=== PATIENT | male | born 1980 | race Caucasian/White ===

== ENCOUNTER 2023-05-23 09:59 | Outpatient (CLI) | payer MEDICAID, SELFPAY ==
--- OUTSIDE RECORDS SUMMARY | 2023-05-23 10:13 | XMS_ITS | Data Portability ---
Author Name Unknown Address [address] [place] [address] Phone [phone] Organization [facility] Address [address] [place] [address] Care Team Providers Care Property Economist Name Role Phone [facility] OTHER Assessment Encounter Date Assessment Date Assessment LastModified by Organization Details LastModified Time 07/27/2020 07/27/2020 The above findings do not support the presence of documented illness that would preclude the patient from participation in inpatient chemical dependence treatment. Based on patient history and the above findings, there's no evidence of communicable disease at this time. Okay to utilize Mellette Routine Standing Orders as Needed. Not available 07/27/2020 10:11:35 09/24/2021 09/24/2021 The above findings do not support the presence of documented illness that would preclude the patient from participation in inpatient chemical dependence treatment. Based on patient history and the above findings, there's no evidence of communicable disease at this time. Okay to utilize Mellette Routine Standing Orders as Needed. Not available 09/24/2021 09:48:40 Plan of Treatment Reminders Order Date Submit Date Provider Last Modified By Organization Details Last Modified Time Details Appointments None recorded. Lab RPR (rapid plasma reagin), serum 2021 022 [email or web address] Not available 2 08:24:15 HIV (1+2) Ab screen, serum 2021 022 [email or web address] Not available 2 08:24:15 hepatitis C virus Ab, serum 2021 022 [email or web address] Not available 2 08:24:16 CT + NG RNA, PCR, unspecified specimen 2021 [email or web address] Not available 08:24:16 hepatitis B profile, serum 2021 [email or web address] Not available 08:24:16 Referral None recorded. Procedures None recorded. Surgeries None recorded. Imaging None recorded. Medication Orders cholecalcif priscila (vitamin D3) 50 mcg (2,000 unit) tablet 2021 [facility], [address] [place] [address], [address], [place], [address], 23:33:15 multivitami n tablet 2021 [facility], [address] [place] [address], [address], [place], [address], 23:33:15 naltrexone 50 mg tablet 2021 [email or web address] Not available 08:33:10 nystatin 100,000 unit/gram topical cream [email or web address] [place] [address], [address] [place] [address], [address], [place], [address], 08:52:49 Patient TargetsNo targets recorded. Patient Instructions Encounter Date Encounter Id Patient Instructions Last Modified By Organization Details Last Modified Time 09/24/2021 [id number] Patient is clear ed for admission into chemical dependence treatment facility. The patient is free of communicable diseases per patient self. Counseled on smoking cessation and discussed pharmacologic and non-pharmacologic options for quitting. Call 2-722-GPYX-NOW for free smoking cessation support. Ok to admit with current standing orders per facility. In house psychiatrist referrer Recommend frequent hand washing and social distancing, reporting any signs/ sx of COVID-19 to nursing staff immediately. Continue current care plan at treatment facility. Standing orders signed per facility request. Infection control is important while in a congregant living facility, especially amid the COVID-19 pandemic. The following measures can help to mitigate the spread of infections: 1. Frequent hand washing with soap and water or hand rn endoscopy. 2. Avoid touching your face. 3. Maintain social distance of at least 6 feet apart from other people. 4. Wear a mask or cloth face covering if available. 5. Report any fever, malaise, cough, or shortness of breath to nursing staff immediately. Quarantine from others if these symptoms develop. [email or web address] Not available 09/24/2021 10:01:12 Patient advised to continue maintaining contact with helpful treatment resources and/or support groups even if he is initially able to achieve abstinence. Patient to contact a provider or clinic if concerned about any increased risk of relapse due to increased stress, anxiety, family issues, work-related problems, or increased craving. 5 minutes educated on the importance of quitting smoking. Discussed pharmacologic and nonpharmacologic methods of quitting. Follow-up actions: Advised patient to call [phone]-VLCQ-NOW for free smoking cessation support and resources. Due to the covid-19 situation, this visit is being conducted via telemedicine/video conference per the direction of state and federal recommendations. I have reviewed this with my client have consented to services being conducted in this format. Not available 09/24/2021 10:01:24 07/27/2020 [id number] Patient is clear ed for admission into chemical dependence treatment facility. The patient is free of communicable diseases per patient self. Counseled on smoking cessation and discussed pharmacologic and non-pharmacologic options for quitting. Call 1-308-PQXS-NOW for free smoking cessation support. Ok to admit with current standing orders per facility. In house psychiatrist referrer Recommend frequent hand washing and social distancing, reporting any signs/ sx of COVID-19 to nursing staff immediately. ATTN Nursing: please continue to check/ record temperature 2x daily and screen for cough, fever, sob. Continue current care plan at treatment facility. Standing orders signed per facility request. Infection control is important while in a congregant living facility, especially amid the COVID-19 pandemic. The following measures can help to mitigate the spread of infections: 1. Frequent hand washing with soap and water or hand rn endoscopy. 2. Avoid touching your face. 3. Maintain social distance of at least 6 feet apart from other people. 4. Wear a mask or cloth face covering if available. 5. Report any fever, malaise, cough, or shortness of breath to nursing staff immediately. Quarantine from others if these symptoms develop. [email or web address] Not available 07/27/2020 10:15:54 Patient advised to continue maintaining contact with helpful treatment resources and/or support groups even if he is initially able to achieve abstinence. Patient to contact a provider or clinic if concerned about any increased risk of relapse due to increased stress, anxiety, family issues, work-related problems, or increased craving. Educated on the importance of quitting smoking. Discussed pharmacologic and nonpharmacologic methods of quitting. Follow-up actions: Advised patient to call 8-047-CKMK-NOW for free smoking cessation support and resources. Due to the covid-19 situation, this visit is being conducted via telemedicine/video conference per the direction of state and federal recommendations. I have reviewed this with my client have consented to services being conducted in this format. [email or web address] Not available 07/27/2020 15:58:05 Reason for Referral None Reported. Problems Name Status Onset Date Resolution Date Notes Provider Name and Address Organization Details Recorded Time Attention deficit hyperactivity disorder Active Odalys Sesar [employer] [employer] 1 10:12:43 Posttraumatic stress disorder Active Odalys Sesar [employer], [employer] 1 10:12:51 Cannabis dependence Active Last use: 07/2021 Amount: 3.5 grams QD Started:1 4 yrs old [employer], [employer] 2 09:51:14 Methamphetamine dependence Active Last use: 2 Amount:1 gram QD Route: Smoke, IV---Hasmukh es sharing needles Started: 16 yrs old [employer], [employer] 2 09:50:55 Mixed anxiety and depressive disorder Active [employer] [employer] 2 09:49:49 Tobacco dependence syndrome Active Former smoker [employer] [employer] 2 09:50:09 Problem Notes None recorded. Medical Equipment None Reported. Allergies Allergen ID Allergen Name Allergen Category Reaction Reaction Severity Criticality Documentation Date Start Date Code Code System Note Provider Name and Address Organization Details Recorded Time 1473 codeine medicatio n Not available Not available Not available 07/27/2020 2670 RxNorm ADAM Figueroa [employer] 1 10:12:06 Medications Name Sig Start Date Stop Date Status Note LastModified by Organization Details LastModified Time multivitami n tablet Take 1 tablet every day by oral route. 2021 active Not Available Not Available Not Avai lable naltrexone 50 mg tablet Take 1 tablet every day by oral route. 2021 active Not Available Not Available Not Avai lable nystatin 100,000 unit/gram topical cream APPLY TO THE AFFECTED AREA(S) BY TOPICAL ROUTE 2 TIMES PER DAY 09/24 completed Not Available Not Available Not Available Tab-A-Hermes take 1 tablet daily 09/24 completed Not Available Not Available Not Available cholecalcif priscila (vitamin D3) 50 mcg (2,000 unit) tablet Take 1 tablet every day by oral route. 2021 active Not Available Not Available Not Avai lable Vitals Date Recorded Body height Body mass index (BMI) Body weight Heart rate Respiratory rate Body temperature Oxygen saturation Oxygen saturation in Arterial blood by Pulse oximetry Systolic blood pressure Diastolic blood pressure Provider Name and Address Organization Details Last Updated DateTime 2 177.8 cm 25.8 kg/m2 66700.6 3 g 83 /min 16 /min 97.3 [degF] 96 % 96 % 100 mm[Hg] 78 mm[Hg] marcy luciano [employer] 2 09:52:01 Date Recorded Body height Body mass index (BMI) Body weight Heart rate Respiratory rate Body temperature Oxygen saturation Oxygen saturation in Arterial blood by Pulse oximetry Systolic blood pressure Diastolic blood pressure Provider Name and Address Organization Details Last Updated DateTime 1 177.8 cm 25.8 kg/m2 70557.6 3 g 84 /min 17 /min 96.5 [degF] 98 % 98 % 128 mm[Hg] 91 mm[Hg] ADAM Figueroa [employer] 1 10:18:15 Social History Question Answer Notes LastModified by Organizat ion Details LastModified Time Tobacco Smoking Status Former Smoker marcy shah ADAM luciano - [employer] 09/24/2021 09:56:35 What Is Your Level Of Alcohol Consumption? Occasional Information not available 07/27/2020 How Many Years Have You Consumed Alcohol? 28 Information not available 09/24/2021 Are You Blind Or Do You Have Difficulty Seeing? No Information not available 09/24/2021 What Is Your Level Of Caffeine Consumption? Heavy Information not available 09/24/2021 How Much Tobacco Do You Chew? None Information not available 07/27/2020 Are You Currently Employed? No Information not available 09/24/2021 Are You Deaf Or Do You Have Serious Difficulty Hearing? No Information not available 09/24/2021 What Type Of Diet Are You Following? REGULAR Information not available 07/27/2020 Which Illicit Or Recreational Drugs Have You Used? See Problem List Information not available 09/24/2021 Do You Or Have You Ever Used E-cigarettes Or Vape? Never Used Electronic Cigarettes Information not available 07/27/2020 Education 12 Information no t available 07/27/2020 What Is The Highest Grade Or Level Of School You Have Completed Or The Highest Degree You Have Received? [id number] Information not available 09/24/2021 Hard Of Hearing Or Deaf In One Or Both Ears? No Information not available 07/27/2020 Legally Blind In One Or Both Eyes? No Information not available 07/27/2020 Live Alone Or With Others? With Others Information not available 07/27/2020 What Was The Date Of Your Most Recent Tobacco Screening? 09/24/2021 Information not available 09/24/2021 How Many Children Do You Have? 3 Information not available 09/24/2021 Are You Sexually Active? Yes STD TESTED 02/2020 + [employer]= TREATED Information not available 07/27/2020 At What Age Did You Start Smoking Tobacco? 13 Information not available 07/27/2020 Are You Passively Exposed To Smoke? No Information not available 07/27/2020 Do You Or Have You Ever Used Smokeless Tobacco? Never Used Smokeless Tobacco Information not available 07/27/2020 How Much Tobacco Do You Smoke? 1 PPD Information not available 07/27/2020 General Stress Level High Information not available 07/27/2020 Do You Feel Stressed (tense, Restless, Nervous, Or Anxious, Or Unable To Sleep At Night)? [id number] Information not available 09/24/2021 Do You Use Any Illicit Or Recreational Drugs? Yes Information not available 09/24/2021 How Many Years Have You Smoked Tobacco? 35 Information not available 07/27/2020 Do You Or Have You Ever Used Any Other Forms Of Tobacco Or Nicotine? No Information not available 09/24/2021 Sex: Male Functional Status Question Answer Note LastModified by Organizat ion Details LastModified Time Do you have difficulty walking or climbing stairs? No Information not available 09/24/2021 Are you able to walk? YESWOREST Information not available 09/24/2021 Do you have difficulty doing errands alone? No Information not available 09/24/2021 Are you able to care for yourself? Yes Information not available 07/27/2020 Do you have difficulty dressing or bathing? No Information not available 09/24/2021 What is your exercise level? Occasional Information not available 09/24/2021 Mental Status Question Answer Note LastModified by Organization D etails LastModified Time Do you have difficulty concentrating, remembering or making decisions? Yes Information no t available 09/24/2021 Family History Nothing Reported. Medical History No medical history recorded. Past Encounters Encounter ID Performer Location Encounter Start Date Encounter Closed Date Diagnosis/Indication [id number] Jayden Lowery NP, S [facility] [address] [place] [id number] 07/27/2020 10:08:41 09/13/2020 20:13:05 Methamphetamine dependence Cannabis dependence Mixed anxiety and depressive disorder Tobacco dependence syndrome Candidiasis of skin Attention deficit hyperactivity disorder Posttraumatic stress disorder [id number] Jayden Lowery NP, S [facility] [address] [place] [id number] 09/24/2021 09:46:03 09/28/2021 04:32:10 Methamphetamine dependence Cannabis dependence Mixed anxiety and depressive disorder Tobacco dependence syndrome Exposure to sexually transmissible disorder Attention deficit hyperactivity disorder Posttraumatic stress disorder Renewal of prescription Health Concerns Section Related Observation LastModified by Organization Detai ls LastModified Time None Recorded Concern Status LastModified by Organization Details LastModified Time None Recorded Advance Directives Directive None Recorded Payers Encounter Date Sequence Insurance Name Policy Number Policy Galvin Covered Member ID Galvin Member ID Guarantor Name 09/24/2021 1 [employer] - DOS PRIOR TO 2021 (MEDICAID REPLACEMENT - HMO) MEMMIGUEL Christy [id number] Nikhil Christy 07/27/2020 1 *SELF PAY* Br connie Christy Notes Date Note Type Note Provider Name and Address Organization Details Recorded Time 07/27/2020 text/html HPI Notes: A 39 years old patient residing at [facility] with a history of drug abuse, anxiety, ADD, PTSD and depression. Patient admitted for methamphetamine and cannabis abuse, he denies use of other drugs.Patient denies. Patient presents for an admission H&P. required for admission to a chemical dependence treatment program. He has used drug for 25 years. last use was 06/16/20, he denies cravings and admit withdrawal symptoms. Patient smoke 20 cigarette daily and he has use tobacco for 26 years. He denies suicidal ideation. Patient reports he is sexually active. Tobacco use: Patient declines smoking cessation. The patient is established with a primary care provider. The patient is not established with a mental health provider. The patient has not been hospitalized recently. Start time of video conference: 904 End time of video conference: 924 Location of patient: [facility] Location of medical and scientific illustrator: Home Location of provider: Home Patient verbally consented to receiving visit videoconference. A Carly[employer] videoconference visit is being conducted rather than a face to face visit due to CDC recommendations for social distancing amid the COVID-19 pandemic. Do you have a fever?: no Do you have a cough?: no Do you have shortness of breath?: no Verbally consent given for services, release of information, and record sharing. Written consent given by patient for services, release of information, and record sharing. Notice of Privacy Practices presented at this time. Written consent to be faxed by facility staff to [employer]. Jayden Lowery NP, S [address], [place], [address], [facility] [employer] 07/27/2020 15:59:15 09/24/2021 text/html HPI Notes: This is an Established patient who Presents for H+P as required for admission to a chemical dependence treatment program. 40 years old patient residing at [facility] with a history of drug abuse, anxiety, ADD, PTSD and depression. Patient admitted for methamphetamine and cannabis abuse, he denies use of other drugs.Patient denies. Patient presents for an admission H&P. required for admission to a chemical dependence treatment program. He has used drug for 26 years. last use was 09/20/21, he denies cravings and withdrawal symptoms. He denies suicidal thoughts. Patient reports he is sexually active. Covid vaccines: No covid vaccines The patient is not established with a primary care provider. The patient is not established with a mental health provider. The patient has not been hospitalized recently. Start time of video conference: 899 End time of video conference: 924 Location of patient: [facility] Location of medical and scientific illustrator: Office Location of provider: Office Patient verbally consented to receiving visit videoconference. A C[facility]so videoconference visit is being conducted rather than a face to face visit due to CDC recommendations for social distancing amid the COVID-19 pandemic. Do you have a fever?: no Do you have a cough?: no Do you have shortness of breath?: no Verbally consent given for services, release of information, and record sharing. Written consent given by patient for services, release of information, and record sharing. Notice of Privacy Practices presented at this time. Written consent to be faxed by facility staff to [employer]. Jayden Lowery NP, S [address], [place], [address], [facility] [employer] 09/24/2021 23:33:34
== END 2023-05-23 10:00 | disposition home or self-care (01) ==
PROVIDERS: PCP Family Medicine; Visit Provider Family Medicine
DX: R10.13 Epigastric pain (principal); Z13.220 Encounter for screening for lipoid disorders; Z13.29 Encounter for screening for other suspected endocrine disorder; Z13.228 Encounter for screening for other metabolic disorders; Z12.5 Encounter for screening for malignant neoplasm of prostate
CPT/HCPCS: 80053; 80061; 84443; G0103

== ENCOUNTER 2023-06-22 06:13 | Outpatient (CLI) | payer MEDICAID, SELFPAY ==
--- NOTE | 2023-06-22 07:41 | W.ANESCHARGE ---
Anesthesia Charges Start Date/Time Anesthesia Start Date: 06/22/23 Anesthesia Start Time: 07:11 Stop Date/Time Anesthesia Stop Date: 06/22/23 Anesthesia Stop Time: 08:10
--- NOTE | 2023-06-22 08:16 | W.ANESCHARGE ---
Anesthesia Charges Start Date/Time Anesthesia Start Date: 06/22/23 Anesthesia Start Time: 07:11 Stop Date/Time Anesthesia Stop Date: 06/22/23 Anesthesia Stop Time: 08:10
== END 2023-06-22 06:14 | disposition home or self-care (01) ==
LOC: OP CLINIC 06:13
PROVIDERS: Visit Provider Surgery
DX: Z12.11 Encounter for screening for malignant neoplasm of colon (principal); K63.5 Polyp of colon; Z80.0 Family history of malignant neoplasm of digestive organs
CPT/HCPCS: 00811; 45381; 45385; 88305; J2704

== ENCOUNTER 2023-06-23 12:06 | Outpatient (CLI) | payer MEDICAID, SELFPAY | END 2023-06-23 12:07 | disposition home or self-care (01) | LOC: LKVREF 12:07 | PROVIDERS: PCP Family Medicine; Visit Provider Family Medicine | DX: Z01.818 Encounter for other preprocedural examination (principal) | CPT/HCPCS: 80048 ==

== ENCOUNTER 2023-06-26 06:40 | Day surgery (SDC) | payer MEDICAID, SELFPAY ==
[2023-06-26] VITALS (14 sets, daily range): BP systolic 103–118; BP diastolic 56–83; PULSE 40–67; RESP 16; TEMP 36.4–36.7; O2SAT 94–99; BMI 27.4
[2023-06-26] MEDS: LACTATED RINGERS 1000 ML 1,000 ML 100 ML IV (07:00)
[2023-06-26] MEDS: SODIUM CHLORIDE 0.9 % (FLUSH) 10 ML SYRINGE IVF (07:36)
--- NOTE | 2023-06-26 08:29 | W.PM.H&PU ---
History & Physical Update History & Physical Update H&P Reviewed and patient assessed: No changes noted
--- NOTE | 2023-06-26 08:30 | PM.GSPRC ---
Operative Note Date of procedure: 06/26/23 Pre-op diagnosis: 1. Symptomatic umbilical hernia. Post-op diagnosis: 1. Incarcerated umbilical hernia containing preperitoneal fat. Type of Procedure: 1. Open umbilical hernia repair without mesh. Indications: 42-year-old male was seen in clinic for evaluation of umbilical hernia. Patient initially noticed umbilical bulge 10 years ago. Patient thought the bulge has increased in size slightly since he noticed it. Patient also developed recurrent episodes of vomiting that happened approximately every month. This was not related to eating specific food and usually those episodes started all of a sudden. Patient complained of umbilical discomfort when a T shirt rubbed over it or someone palpated the bulge. On clinical exam at the superior aspect of the umbilicus there was a grape sized bulge that was tender to palpation. I was not able to reduce it because patient was in too much pain with manipulation of the bulge. Given patient's clinical history and his physical exam, an open umbilical hernia repair was recommended. The procedure was discussed in detail. The risks associated procedure including infection, bleeding, hernia recurrence, and injury to intra-abdominal organs were all discussed with the patient, he agreed to proceed. Procedure Description: After discussing the risks and benefits of the procedure, the patient signed informed consent.? The operative site was marked and the patient was brought to the operating room and placed on the operating table in supine position.? Care was taken to pad the patient's pressure points.?? The patient was then intubated by anesthesia.?? The operative site was then prepped and draped in the usual sterile fashion.? A time-out was then performed. Local anesthetic was injected at the surgical site. A curvilinear skin incision was made with a scalpel just above umbilicus. Subcutaneous tissue was dissected with electrocautery down to the hernia sac and anterior fascia. The hernia sac was dissected off of the anterior fascia and subcutaneous fat around the fascial defect was dissected away from the fascial defect with cautery. Preperitoneal fat was incarcerated through the fascial defect. This was dissected away from the fascia but I was not able to reduce the incarcerated fat. This fat was excised with cautery. It was not sent to pathology. Bleeding was noted from preperitoneal fat and that was controlled with cautery and Vicryl tie. The fascial defect was approximately 8 mm. I elected to repair this primarily without mesh. The fascial defect was then closed with interrupted 0-0 Nurolon sutures. Additional local anesthetic was injected into subcutaneous tissues. An umbilicus was tacked down with interrupted 3-0 Vicryl stitches. Subdermal layer was closed with interrupted sutures using 3-0 Vicryl. Skin was closed with 4-0 Monocryl using subcuticular stitch. Steri strips were applied over the incision. I then placed a folded sterile 4x4 gauze over the incision and covered it with tape. All counts were correct at the end of the case. Patient tolerated the procedure well and was transferred to PACU without any complications. Findings: Preperitoneal fat incarcerated through the fascial defect. The fat was excised. The fascial defect was 8 mm and was repaired primarily. Anesthesia: [facility] Surgeon: Audi Christianson MD Condition: stable Disposition: PACU
[2023-06-26] MEDS: CEFAZOLIN 2 GM INJ IVP (08:40)
[2023-06-26] MEDS: BUPIVACAINE 0.25% 30 ML INJECTION (08:43)
[2023-06-26] MEDS: fentaNYL 100 MCG/2 ML inj 50 MCG IVP ×2 (09:31→09:42)
--- NOTE | 2023-06-26 09:31 | W.ANESCHARGE ---
Anesthesia Charges Start Date/Time Anesthesia Start Date: 06/26/23 Anesthesia Start Time: 08:28 Stop Date/Time Anesthesia Stop Date: 06/26/23 Anesthesia Stop Time: 09:26
[2023-06-26] MEDS: HYDROCODONE-ACETAMIN 5-325 MG 1 TAB PO (10:08)
== END 2023-06-26 11:15 | disposition home or self-care (01) ==
PROVIDERS: PCP Family Medicine; Visit Provider Surgery
PROC: (CPT 49592; principal; 2023-06-26 08:15)
DX: K42.0 Umbilical hernia with obstruction, without gangrene (principal)
CPT/HCPCS: 49592; 00830; A9270; J0665; J0690; J1100; J1885; J2250; J2405; J2704; J2710; J3010; J7120

== ENCOUNTER 2023-08-02 07:24 | Emergency (ER) | payer MEDICAID, SELFPAY ==
[2023-08-02 07:30] VITALS: BP 163/103; PULSE 54; RESP 18; TEMP 36.6; O2SAT 97; BMI 26.5
[2023-08-02] MEDS: PANTOPRAZOLE SODIUM 40 MG INJ IVP (07:49)
[2023-08-02] MEDS: ONDANSETRON 2 MG/ML inj 4 MG IVP (07:49)
[2023-08-02] MEDS: 0.9 % SODIUM CHLORIDE 1000 ml 1,000 ML IV (07:50)
--- NOTE | 2023-08-02 08:00 | ED_ITS ---
HPI - Nausea/Vomiting/Diarrhea General Time Seen by Provider: 08:00 Date Seen: 08/02/23 Chief complaint: Nausea/Vomiting Stated complaint: dehydrated Time Seen by Provider: 08/02/23 07:58 Source: patient and RN notes reviewed Mode of arrival: ambulatory Limitations: no limitations History of Present Illness HPI Narrative: This 45yo male is coming to the ED with nausea/vomiting. He states that this has been happening about monthly for years. He does smoke marijuana but states he has done so for most of his life. Also does drink a significant amount of alcohol. No fevers but will feel hot and sweaty with these episodes. Showering helps him. He has Zofran but it isn't helping. Feels that he is dehydrated. Current episode has been since Monday. Related Data Home Medications Medication Instructions Recorded Confirmed guanfacine 1 mg tablet 1 mg PO BID 06/26/23 06/26/23 clonidine HCl .ROUTE 08/02/23 Previous Rx's Medication Instructions Recorded omeprazole 20 mg capsule,delayed 20 mg PO QDAY #90 caps 05/23/23 release ondansetron HCl 4 mg tablet 4 mg PO Q8H PRN nausea and 05/23/23 vomiting #30 tabs hydrocodone 5 mg-acetaminophen 325 1 tab PO Q6H PRN pain #20 tabs 06/26/23 mg tablet olanzapine 5 mg tablet (Zyprexa) 5 mg PO BID PRN #20 tabs 08/02/23 Allergies Allergy/AdvReac Type Severity Reaction Status Date / Time codeine Allergy Mild Verified 06/23/23 11:39 nickel Allergy Verified 06/23/23 11:39 Review of Systems Status of ROS: Reports: 6 or more systems reviewed and unremarkable except as noted in History and below [facility] Surgical History History of hand surgery ?Z98.890 - Other specified postprocedural states (ICD-10) Social History Narrative: Patient smokes marijuana daily. He has been doing that for several years. Denies cigarette smoking but drinks alcohol. 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 Smoking Status: Never smoker Second hand tobacco smoke exposure: No How often do you have a drink containing alcohol: 4 or more times a week Alcohol type: beer How many standard drinks containing alcohol do you have on a typical day: 3 or 4 How often do you have six or more drinks on one occasion: Less than monthly AUDIT-C Alcohol total score: 6 Non-prescribed substance use: marijuana (any form) Non-prescribed substance use details: SMOKING. LAST USED LAST NIGHT Caffeine: Yes Little interest or pleasure in doing things: several days Feeling down, depressed, or hopeless: several days Exam Const: Vital Signs, click to edit/add: Vital Signs - 24 hr 08/02/23 07:30 08/02/23 08:48 Temperature 97.8 F Pulse Rate [Right Pulse Oximeter] 54 L 47 L Respiratory Rate 18 18 Blood Pressure [Ri ght Upper Arm] 163/103 H 161/99 H Pulse Oximetry 97 98 Oxygen Delivery Me thod Room Air Room Air This 42-year-old male is lying in bed in exam room 3 with eyes closed. He is arousable by voice. Face atraumatic, speech is normal. Neck is supple, no adenopathy. Lungs are clear, good air entry, no wheezing or crackles. CV regular rate and rhythm, no murmur, normal S1-S2. Abdomen with normal bowel sounds, abdomen is soft, not distended, no organomegaly, no rebound or guarding, no masses noted. Skin visualized without any rash or jaundice. Documenting provider has reviewed patient's vital signs: yes Course Course ED Course: Patient did come in near change of shift, the overnight physician had ordered some appropriate blood work in initiated IV Protonix, IV Zofran and IV fluids. Patient is still symptomatic with retching intermittently. Have reviewed with him cyclical vomiting in the role of THC and possibly alcohol in this. We did review that for some people the toxic buildup of the THC starts to cause problems even if they have tolerated marijuana for long periods before. We discussed my recommendation for cessation of marijuana use possibly alcohol use as well but if I had to pick 1 to start with it would be the marijuana 1st. We will see with the labs show, see how he responds to Zyprexa. based on my clinical exam and history, do not feel that any abdominal imaging is warranted. Will reconsider this if changes during his stay here or any concerning changes with the labs. Reevaluation(s) Time of Reevaluation #1: 08:46 Reevaluation #1: Nursing staff reports that the patient feels better with the Zyprexa, is just now sleepy. Will see if he can tolerate orals. Time of Reevaluation #2: 09:57 Reevaluation #2: Patient is vomiting again. Have ordered a L of lactated Ringer's and another dose of 5 mg IV Zyprexa. Time of Reevaluation #3: 11:20 Reevaluation #3: Patient is resting, has completed the 2 L. he is not having any more vomiting, has been taking sips of liquids again and is keeping them down at this time. We stressed the importance of small sips every 5-10 minutes while awake. He certainly does not want to overload is stomach. Reviewed normal labs with normal electrolytes. They do try some oral Benadryl at home. He does state his stomach feels ?tight? but not necessarily nauseated anymore. Will give a dose of IV Benadryl 25 mg and plan for discharge with a prescription for oral Zyprexa to add into his regimen at home. Stressed the importance for avoidance of marijuana/THC. Vital Signs Vital signs: Initial Vital Signs Temperature 97.8 F 08/02/23 07:30 Temperature Source Temporal Artery Scan 08/02/23 07:30 Pulse Rate 54 L 08/02/23 07:30 Respiratory Rate 18 08/02/23 07:30 Blood Pressure 163/103 H 08/02/23 07:30 Blood Pressure Mean 123 H 08/02/23 07:30 Blood Pressure Position Supine 08/02/23 07:30 Pulse Oximetry 97 08/02/23 07:30 Oxygen Delivery Method Room Air 08/02/23 07:30 Vital Signs Temperature 97.8 F 08/02/23 07:30 Pulse Rate 54 L 08/02/23 07:30 Respiratory Rate 18 08/02/23 07:30 Blood Pressure 163/103 H 08/02/23 07:30 Pulse Oximetry 97 08/02/23 07:30 Oxygen Delivery Method Room Air 08/02/23 07:30 Temperature 97.8 F 08/02/23 07:30 Pulse Rate 47 L 08/02/23 08:48 Respiratory Rate 18 08/02/23 08:48 Blood Pressure 161/99 H 08/02/23 08:48 Pulse Oximetry 98 08/02/23 08:48 Oxygen Delivery Method Room Air 08/02/23 08:48 Medications Administered Medications: Discontinued Medications Generic Name Dose Route Start Last Admin Trade Name Cristy PRN Reason Stop Dose Admin Sodium Chloride 1,000 mls @ 1,000 mls/hr 08/02/23 07:45 08/02/23 08:37 0.9 % Sodium Chloride 1000 Ml IV 08/02/23 08:44 Infused .Q1H [place] Infusion Lactated Ringer's 1,000 mls @ 1,000 mls/hr 08/02/23 09:57 08/02/23 10:13 Lactated Ringers 1000 Ml IV 08/02/23 10:56 1,000 mls/hr .Q1H ONE Administration Olanzapine 5 mg 08/02/23 08:04 08/02/23 08:15 Olanzapine 5 Mg/Ml Inj IVP 08/02/23 08:05 5 mg ONCE ONE Administration Olanzapine 5 mg 08/02/23 09:57 08/02/23 10:13 Olanzapine 5 Mg/Ml Inj IVP 08/02/23 09:58 5 mg ONCE ONE Administration Ondansetron HCl 4 mg 08/02/23 07:40 08/02/23 07:49 Ondansetron 2 Mg/Ml Inj IVP 08/02/23 07:41 4 mg ONCE ONE Administration Pantoprazole Sodium 40 mg 08/02/23 07:40 08/02/23 07:49 Pantoprazole Sodium 40 Mg Inj IVP 08/02/23 07:41 40 mg ONCE ONE Administration MDM - Nausea/Vomiting/Diarrhea Lab Data Attestation: I reviewed the patient's lab results. Labs: Lab Results 08/02/23 Range/Units 07:35 WBC 11.70 H (4.50-11.00) K/uL RBC 5.32 (4.30-5.90) m/uL Hgb 16.1 (13.5-17.5) gm/dL Hct 47.9 (37.0-53.0) % MCV 90 (80-100) fL MCH 30 (26-34) pg MCHC 34 (32-36) gm/dL RDW Coeff of Arlette 12.2 (11.5-15.5) % Plt Count 436 (140-440) K/uL Neut % (Auto) 71.2 (42.0-72.0) % Lymph % (Auto) 22.0 (20-44) % Barren % (Auto) 5.6 (0.0-11.0) % Eos % (Auto) 0.6 (0.0-7.0) % Baso % (Auto) 0.4 (0.0-3.0) % Neut # (Auto) 8.30 H (1.7-7.0) K/uL Lymph # (Auto) 2.60 (0.90-2.90) K/uL Barren # (Auto) 0.70 (0.00-0.90) K/UL Eos # (Auto) 0.10 (0.00-0.50) K/uL Baso # (Auto) 0.00 (0.00-0.30) K/uL Abs Immat Gran (auto) 0.00 (0.00-0.30) K/uL Imm/Tot Granulo (auto) 0.2 % Sodium 137 (135-149) mmol/L Potassium 3.5 L (3.6-5.1) mmol/L Chloride 99 (96-114) mmol/L Carbon Dioxide 32 (20-32) mmol/L Anion Gap 6 L (7-15) mEq/L BUN 18 (5-24) mg/dL Creatinine 1.1 (0.5-1.5) mg/dL Estimated Creat Clear 88.48 Estimated GFR 85 ml/min Glucose 122 H (60-115) mg/dL Calcium 9.3 (8.4-10.6) mg/dL Magnesium 1.9 (1.5-2.6) mg/dL Total Bilirubin 1.3 (0.1-1.5) mg/dL Direct Bilirubin 0.1 (0.0-0.5) mg/dL AST 31 (12-35) U/L ALT 25 (4-50) U/L Alkaline Phosphatase 54 (40-150) U/L Total Protein 8.4 H (6.0-8.3) g/dL Albumin 4.8 (3.3-5.0) g/dL Lipase 207 (23-300) U/L Discharge Plan Discharge Clinical Impression: Nausea and vomiting Qualifiers: Vomiting type: unspecified Qualified Code(s): R11.2 - Nausea with vomiting, unspecified Patient Disposition: Home, Self-Care Condition: Stable Instructions: Acute Nausea and Vomiting (ED) Additional Instructions: Need to go home and rest. Take small sips of fluids every 5-10 minutes while awake, this will help prevent overload in the stomach. Can use the combination of Benadryl, Zofran and Zyprexa per prescription instructions for recurrent nausea or vomiting. I do think you need to consider that you have cyclical vomiting syndrome and it is most definitely contributed to from marijuana use. It may take months for all of the THC to leave your system. I do think if you do not want to continue to feel this way, likely need to quit smoking marijuana. Alcohol can contribute, may need to consider cessation of this as well if ongoing symptoms. Follow-up with your primary care provider within the next week for recheck and for further discussion of these issues. Activity Level: Activity as Tolerated Prescriptions: New olanzapine [Zyprexa] 5 mg tablet 5 mg PO BID PRNQty: 20 0RF No Action omeprazole 20 mg capsule,delayed release(DR/EC) 20 mg PO QDAY Qty: 90 1RF ondansetron HCl 4 mg tablet 4 mg PO Q8H PRN (Reason: nausea and vomiting) Qty: 30 1RF guanfacine 1 mg tablet 1 mg PO BID hydrocodone-acetaminophen 5-325 mg tablet 1 tab PO Q6H PRN (Reason: pain) Qty: 20 0RF clonidine HCl .ROUTE Follow Up/Referrals: José Brown MD [Primary Care Provider] - Stand Alone Forms: Spaciousth Info Instructions Critical Care Time Critical Care Time Critical Care Time: No
[2023-08-02 08:09] LABS: Basophils Percent Auto 0.4 % (0.0-3.0); Eosinophils Percent Auto 0.6 % (0.0-7.0); Hematocrit 47.9 % (37.0-53.0); Hemoglobin* 16.1 gm/dL (13.5-17.5); Immature Granulocytes Pct Auto 0.2 %; Mean Corpuscular HGB Conc 34 gm/dL (32-36); Mean Corpuscular Hemoglobin 30 pg (26-34); Mean Corpuscular Volume 90 fL (80-100); Monocytes Percent Auto 5.6 % (0.0-11.0); Neutrophils Percent Auto 71.2 % (42.0-72.0); Platelet Count* 436 K/uL (140-440); RDW Coefficient of Variation % 12.2 % (11.5-15.5); Red Blood Count 5.32 m/uL (4.30-5.90)
[2023-08-02 08:15] LABS: Slide Review Reflex No
[2023-08-02] MEDS: OLANZapine 5 MG/ML inj IVP ×2 (08:15→10:13)
--- OUTSIDE RECORDS SUMMARY | 2023-08-02 08:20 | XMS_ITS | Clinical Summary ---
Author Name Unknown Organization [facility] Address [address] [place] [address] Care Team Providers Care Log Chipper Name Role Phone Aspen Rocha APRN,CHITRA Primary Care Provider Unava ilable Source Comments PLEASE NOTE, if this patient is a minor, it may be UNLAWFUL to discuss sensitive information that is contained in these records (such as FAMILY PLANNING, MENTAL HEALTH or SUBSTANCE ABUSE) with the minor patient's parent or other person without the patient's specific authorization.[facility] Allergies Active Allergy Reactions Criticality Noted Date Comments Codeine Other (See Comments) Medium 04/20/2020 Medications Medication Sig Dispensed Refills Start Date End Date Status DULoxetine (CYMBALTA) [address] capsule Take 60 mg by mouth once daily Active sildenafil citrate (SILDENAFIL ORAL) Take 20 mg by mouth as needed Active atomoxetine (STRATTERA) 80 mg capsule Take 80 mg by mouth once daily Active gabapentin (NEURONTIN) 300 mg capsule 11/15/2021 Active cloNIDine HCL (CATAPRES) 0.1 mg tablet 11/15/2021 Active acetylcysteine 600 mg cap 11/16/2021 Active sildenafiL (VIAGRA) 50 mg tabletIndications:E rectile dysfunction, unspecified erectile dysfunction type Take 1 Tablet by mouth once daily as needed for erectile dysfunction 30 Tablet 1 11/30/2021 Active Social History Tobacco Use Types Packs/Day Years Used Date Smoking Tobacco: Former Cigarettes Smokeless Tobacco: Current Tobacco Cessation:Ready to Q uit: Not Asked; Counseling Given: Not Answered Alcohol Use Standard Drinks/Week Comments Yes 0 (1 standard drink = 0.6 oz pur e alcohol) Social Connections Answer Date Recorded Social Connections and Isolation 0 04/14/2020 Financial Resource Strain Answer Date R ecorded Financial Resource Strain 0 2019 Stress Answer Date Recorded Stress 0 04/14/2020 Physical Activity Answer Date Recorded Physical Activity 0 04/14/2020 Food Insecurity Answer Date Recorded Food 0 04/14/2020 Transportation Needs Answer Date Record ed Transportation 0 04/14/2020 Housing Stability Answer Date Recorded Housing 0 04/14/2020 Safety and Environment Answer Date Bc rded Safety 0 04/14/2020 Utilities Answer Date Recorded Utilities 0 04/14/2020 Employment Answer Date Recorded Employment 0 04/14/2020 Sex and Gender Information Value Date Recorded Sex Assigned at Not on file Gender Identity Not on file Sexual Orientation Not on file Last Filed Vital Signs Vital Sign Reading Time Taken Comments Blood Pressure 118/74 11/30/2021 8:23 AM CDT Pulse 64 11/30/2021 8:23 AM CDT Temperature 36 ??C (96.8 ??F) 11/30/2021 8:23 AM CDT Respiratory Rate 18 11/30/2021 8:23 AM CDT Oxygen Saturation 97% 11/30/2021 8:23 AM CDT Inhaled Oxygen Concentration - - Weight 81.6 kg (180 lb) 11/30/2021 8:23 AM CDT Height 177.8 cm (5' 10) 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 Body Mass Index 25.83 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 Plan of Treatment Health Maintenance Due Date Last Done Comments Diabetes Screening 1978 Hepatitis C Screening 1978 Lipid Screening 1978 Tobacco Cessation Counseling (#1) 1978 Tobacco Screening 1978 HIV Screening 1993 Imm-DTaP/Tdap/Td (1 - Tdap) 1997 Imm-Hepatitis B (1 of 3 - 19+ 3-dose series) 8 Hypertension Screening (#1) 11/30/2022 [id number] ( - season) 2022 Alcohol and Drug Screen 04/17/2023 Depression Annual Screen 04/17/2023 11/30/2021 Imm-Influenza (Season Ended) 2023 Insurance Payer Benefit Plan / Group Subscriber ID Effective Dates Phone Address Type [employer] [facility] [id number] 2021-Prese nt [address] [place] [address] Medicaid Care Teams Log Chipper Relationship Specialty Start Date End Date BaiAspen regan APRN,SHIRRING MACHINE OPERATOR AUTOMATIC PCP - General Family Medicine, CALL PERSON 11/30/21
[2023-08-02 08:24] LABS: Albumin* 4.8 g/dL (3.3-5.0); Chloride* 99 mmol/L (96-114)
[2023-08-02 08:25] LABS: Potassium* 3.5 mmol/L (3.6-5.1); Sodium* 137 mmol/L (135-149)
[2023-08-02 08:27] LABS: Alkaline Phosphatase* 54 U/L (40-150); Anion Gap 6 mEq/L (7-15); Aspartate Amino Transferase* 31 U/L (12-35); Bilirubin Direct* 0.1 mg/dL (0.0-0.5); Bilirubin Total* 1.3 mg/dL (0.1-1.5); Blood Urea Nitrogen* 18 mg/dL (5-24); Calcium* 9.3 mg/dL (8.4-10.6); Carbon Dioxide* 32 mmol/L (20-32); Creatinine* 1.1 mg/dL (0.5-1.5); Est. Creatinine Clearance* 88.48; Estimated Glomerular Filt Rate 85 ml/min; Glucose* 122 mg/dL (60-115); Total Protein* 8.4 g/dL (6.0-8.3)
[2023-08-02 08:28] LABS: Alanine Aminotransferase* 25 U/L (4-50); Lipase* 207 U/L (23-300); Magnesium* 1.9 mg/dL (1.5-2.6)
[2023-08-02 08:48] VITALS: BP 161/99; PULSE 47; RESP 18; O2SAT 98
[2023-08-02] MEDS: LACTATED RINGERS 1000 ML 1,000 ML IV (10:13)
[2023-08-02 11:11] LABS: Appearance Urine Clear (Clear); Bilirubin Urine Negative (Negative); Blood Urine Negative (Negative); Color Urine Yellow (Yellow); Glucose Urine Negative (Negative); Ketones Urine 1+ (Negative); Leukocyte Esterase Urine 1+ (Negative); Nitrite Urine Negative (Negative); Protein Urine Negative (Negative); Specific Gravity Urine 1.015 (1.000-1.030); pH Urine 6.5 (5.0-8.5)
[2023-08-02] MEDS: diphenhydrAMINE 50 MG/ML inj 25 MG IVP (11:27)
[2023-08-03 05:17] LABS: RBC Urine 0-2 (0-2); Squamous Epithelial Cell Urine Few (None-Few); WBC Urine 0-2 (0-5)
== END 2023-08-02 11:44 | disposition home or self-care (01) ==
PROVIDERS: Family Medicine; Emergency Provider Family Medicine; PCP Family Medicine
DX: R11.2 Nausea with vomiting, unspecified (principal)
CPT/HCPCS: 36415; 80048; 80076; 81001; 81003; 83690; 83735; 85025; 87086; 96374; 96375; 99283; 99284; C9113; J1200; J2405; J7030; J7120

== ENCOUNTER 2024-07-09 10:21 | Outpatient (CLI) | payer MEDICAID, SELFPAY | END 2024-07-09 10:22 | disposition home or self-care (01) | PROVIDERS: PCP Family Medicine; Visit Provider Family Medicine | DX: Z01.818 Encounter for other preprocedural examination (principal); Z80.0 Family history of malignant neoplasm of digestive organs; Z87.898 Personal history of other specified conditions; Z13.6 Encounter for screening for cardiovascular disorders; Z11.59 Encounter for screening for other viral diseases; Z11.4 Encounter for screening for human immunodeficiency virus [HIV] | CPT/HCPCS: 80053; 80061; 86703; 86803; 87340 ==

== ENCOUNTER 2024-07-18 08:27 | Outpatient (CLI) | payer MEDICAID, SELFPAY ==
--- NOTE | 2024-07-18 10:48 | P.ANES_ITS ---
Anesthesia Charges Start Date/Time Anesthesia Start Date: 07/18/24 Anesthesia Start Time: 10:00 Stop Date/Time Anesthesia Stop Date: 07/18/24 Anesthesia Stop Time: 10:46 Coding CPT Codes CPT Codes: ANES LWR INTST NDSC NOS - 48953 ([id number]) P3 - PATIENT W/SEVERE SYS DISEASE, QZ - AWNING SPREADER SVC W/O RECORDER OF DEEDS BY
--- NOTE | 2024-07-18 10:48 | W.ANESCHARGE ---
Anesthesia Charges Start Date/Time Anesthesia Start Date: 07/18/24 Anesthesia Start Time: 10:00 Stop Date/Time Anesthesia Stop Date: 07/18/24 Anesthesia Stop Time: 10:46 Coding CPT Codes CPT Codes: ANES LWR INTST NDSC NOS - 56934 ([id number]) P3 - PATIENT W/SEVERE SYS DISEASE, QZ - GEOPHYSICAL ENGINEER SVC W/O HULLER OPERATOR BY
== END 2024-07-18 08:28 | disposition home or self-care (01) ==
LOC: OP CLINIC 08:27
PROVIDERS: PCP Family Medicine; Visit Provider Internal Medicine
DX: Z12.11 Encounter for screening for malignant neoplasm of colon (principal); Z86.0100 Personal history of colon polyps, unspecified
CPT/HCPCS: 00811; 45380; 88305; J2405; J2704

== ENCOUNTER 2024-12-07 13:30 | Emergency (ER) | payer MEDICAID, SELFPAY ==
[2024-12-07] VITALS (19 sets, daily range): BP systolic 148–164; BP diastolic 89–91; PULSE 41–84; RESP 11–27; TEMP 36.6; O2SAT 97–100; BMI 25.8
--- OUTSIDE RECORDS SUMMARY | 2024-12-07 13:34 | XMS_ITS | Patient Health Record ---
Author Organization [facility] Address [address] [id number] Care Team Providers Care Ensemble Member Name Role Phone ONE TIME ONLY Primary Care Provider Unavailabl e Reason For Referral No Information Medications Medication SIG (Take, Route, Frequency, Duration) Notes Start Date End Date Status DULoxetine HCl 60 MG Capsule Delayed Release Particles Oral; Duration: 30 Active Atomoxetine HCl 40 MG Capsule Oral; Duration: 30 Active Social History Tobacco Use: Social History Observation Description Date Details (start date - stop date) Current Smoker NA - NA Social History Social History Social Info Question Answer Notes Tobacco Status I am: current every day smoker type of tobacco cigarettes education, tobacco No advised to quit Yes Problems Problem Type SNOMED Code ICD Code Onset Dates Problem Status W/U Status Risk Notes Problem Anxiety (12654696) Anxiety (F41.9) Active confirmed Problem Methamphetamine addiction (F15.20) Active confirmed Plan Of Treatment No Information Insurance Providers Payer Name Payer Address Payer Phone Subscriber Number Group Number Insured Name Patient Relationship to Insured Coverage Start Date Coverage End Date [employer] [address] [place] [address] 1 Nikhil Christy Self - patient is the insured [facility] [place] DOS 18- ADAM MANCERA [id number] Nikhil Paris Self - patient is the insured Medications Administered Medication Instructions Date of Administration Dosage Notes Mantoux - Negative 07/01/2020 Medical (General) History Surgical History Surgery Date(Month/Year)
--- NOTE | 2024-12-07 14:13 | CRLHL7_ITS ---
For Patients: As a result of the Century Cures Act, medical imaging exams and procedure reports are released immediately into your electronic medical record. You may view this report before your referring provider. If you have questions, please contact your health care provider. INDICATION: Shortness of breath. TECHNIQUE: Chest 2 views. COMPARISON: None. FINDINGS: Unremarkable cardiomediastinal contours. No lung consolidation. No sign of pleural effusion. No pneumothorax. No acute osseous or soft tissue findings. IMPRESSION: No acute findings. Dictated by Jasvir Lowery MD @ 12/07/2024 4:10:06 PM (Electronically Signed)
--- NOTE | 2024-12-07 14:13 | CRLHL7_ITS ---
For Patients: As a result of the Century Cures Act, medical imaging exams and procedure reports are released immediately into your electronic medical record. You may view this report before your referring provider. If you have questions, please contact your health care provider. Indication: Abdominal pain. Technique: Abdomen 2 view. Comparison: None. Findings/Impression: Nonspecific bowel gas pattern. There are prominent air-filled loops of bowel noted within the mid abdomen. Prominent gas is seen within the transverse colon. Relative paucity of bowel gas is noted within the pelvis. Partial gaseous distention of the stomach is seen. No gross free air. Recommend close monitoring of the patient`s physical examination. Consider CT of the abdomen and pelvis for better evaluation of the bowel. Dictated by Beto Lancaster MD @ 12/07/2024 4:09:01 PM (Electronically Signed)
--- OUTSIDE RECORDS SUMMARY | 2024-12-07 14:17 | XMS_ITS | Clinical Summary ---
Author Organization [facility] Address [address] [place] [address] Care Team Providers Care Fiscal Officer Name Role Phone Aspen Rocha APRN, CNP Primary Care Provider Unava ilable Source Comments [...] Codeine Other (See Comments) Medium 04/20/2020 Medications DULoxetine (CYMBALTA) [address] capsule Take 60 mg by mouth once daily Active sildenafil citrate (SILDENAFIL ORAL) Take 20 mg by mouth as needed Active atomoxetine (STRATTERA) 80 mg capsule Take 80 mg by mouth once daily Active gabapentin (NEURONTIN) 300 mg capsule 2 Active cloNIDine HCL (CATAPRES) 0.1 mg tablet 2 Active acetylcysteine 600 mg cap 2 Active sildenafiL (VIAGRA) 50 mg tabletIndication s:Erectile dysfunction, unspecified erectile dysfunction type Take 1 Tablet by mouth once daily as needed for erectile dysfunction 30 Tablet 1 2 Active Social History Tobacco Use Types Packs/Day Years Used Date Smoking Tobacco: Former Cigarettes Smokeless Tobacco: Current Tobacco Cessation:Ready to Q uit: Not Asked; Counseling Given: Not Answered Alcohol Use Standard Drinks/Week Comments Yes 0 (1 standard drink = 0.6 oz pur e alcohol) Social Connections Answer Date Recorded Connectedness 0 01/07/2024 Financial Resource Strain Answer Date R ecorded Financial Resource Strain 0 2019 Stress Answer Date Recorded Stress 0 04/14/2020 Physical Activity Answer Date Recorded Physical Activity 0 04/14/2020 Food Insecurity Answer Date Recorded Food 0 01/11/2024 Transportation Needs Answer Date Record ed Transportation 0 04/14/2020 Housing Stability Answer Date Recorded Housing 0 04/14/2020 Safety and Environment Answer Date Bc rded Safety 0 04/14/2020 Utilities Answer Date Recorded Utilities 0 04/14/2020 Employment Answer Date Recorded Stress 0 01/07/2024 Sex and Gender Information Value Date Recorded Sex Assigned at Not on file Legal Sex Male 11:48 AM PST Gender Identity Not on file Sexual Orientation Not on file Last Filed Vital Signs Vital Sign Reading Time Taken Comments Blood Pressure 118/74 11/30/2021 8:23 AM CDT Pulse 64 11/30/2021 8:23 AM CDT Temperature 36 C (96.8 F) 11/30/2021 8:23 AM CDT Respiratory Rate 18 11/30/2021 8:23 AM CDT Oxygen Saturation 97% 11/30/2021 8:23 AM CDT Inhaled Oxygen Concentration - - Weight 81.6 kg (180 lb) 11/30/2021 8:23 AM CDT Height 177.8 cm (5' 10) 04/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 Body Mass Index 25.83 04/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 Plan of Treatment Health Maintenance Due Date Last Done Comments Anxiety Screening 1978 Diabetes Screening 1978 Hepatitis C Screening 1978 Lipid Screening 1978 Tobacco Cessation Counseling (#1) 1978 Tobacco Screening 1978 HIV Screening 1993 Imm-DTaP/Tdap/Td (1 - Tdap) 1997 Imm-Hepatitis B (1 of 3 - 19+ 3-dose series) 8 Hypertension Screening (#1) 11/30/2022 CT Colonography 11/13/2023 Colonoscopy 11/13/2023 Colorectal Cancer Screening 11/13/2023 FIT/gFOBT 11/13/2023 Fecal DNA 11/13/2023 Flexible Sigmoidoscopy 11/13/2023 [id number] (1 - season) 2023 Alcohol and Drug Screen 04/17/2024 Depression Annual Screen 04/17/2024 11/30/2021 Imm-Influenza (#1) 2024 Insurance [facility] MEDICAID Care Teams Fiscal Officer Relationship Specialty Start Date End Date Aspen Rocha APRN,ROOF DESIGNER PCP - General Family Medicine, BRAND INSPECTOR 11/30/21
[2024-12-07] MEDS: OLANZapine 5 MG/ML inj IVP ×2 (14:42→16:27)
[2024-12-07] MEDS: diphenhydrAMINE 25 MG in 0.9 % SODIUM CHLORIDE 100 ml 100 ML 301.5 MG IVPB (14:42)
[2024-12-07 14:48] LABS: Hematocrit 44.8 % (37.0-53.0); Hemoglobin* 15.4 gm/dL (13.5-17.5); Immature Granulocytes Pct Auto 0.1 %; Mean Corpuscular HGB Conc 34 gm/dL (32-36); Mean Corpuscular Hemoglobin 31 pg (26-34); Mean Corpuscular Volume 90 fL (80-100); RDW Coefficient of Variation % 11.8 % (11.5-15.5); Red Blood Count 4.99 m/uL (4.30-5.90); White Blood Count* 13.34 K/uL (4.50-11.00)
--- NOTE | 2024-12-07 14:52 | ED_ITS ---
HPI - Nausea/Vomiting/Diarrhea General Date Seen: 12/07/24 Chief complaint: Nausea/Vomiting Stated complaint: vomiting, difficulty breathing Time Seen by Provider: 12/07/24 13:50 Source: patient, family, RN notes reviewed and old records reviewed Mode of arrival: ambulatory Limitations: no limitations History of Present Illness HPI Narrative: Patient is a 44-year-old gentleman who presents here with his for evaluation of nausea vomiting abdominal pain, and some chest discomfort he has had this now for approximately 3 days, is retched approximately 100 time since this episode occurred. No blood in his vomitus, has no diarrhea at all, abdominal pain is globally throughout his abdomen, there is no radiation of discomfort, he has had this before, it has been called possible hyperemesis secondary to marijuana, but he somewhat disputes this. He stopped using marijuana he says 5 days ago, he uses only once at night, does not use any alcohol, does have a history of previous intravenous drug use. But is not use that for a couple years. Does have a history also of umbilical hernia problems, and a history of a possible twisted cold wound normal when he went for colonoscopy. Denies any exertional chest pain, associated with this no history of previous cardiac or pulmonary issues but does smoke. 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 MD elicited complaint: nausea and vomiting Pertinent past history: cyclical vomiting Description of vomiting: watery and bilious Associated nausea: Yes Associated abdominal pain: Yes Location of pain: diffuse Radiation: diffuse Pain consistency: constant Severity: moderate Quality: cramping, stabbing and aching Exacerbating factors: none Relieving factors: none Treatment prior to arrival: other (Dramamine) Related Data Previous Rx's ?Medication ?Instructions ?Recorded olanzapine 5 mg disintegrating 5 mg PO BID PRN #14 tab s 12/07/24 tablet Allergies Allergy/AdvReac Type Severity Reaction Status Date / Time codeine Allergy Mild Verified 07/09/24 09:48 nickel Allergy Verified 07/09/24 09:48 Review of Systems Status of ROS: Reports: 10 or more systems reviewed and unremarkable except as noted in History and below GI: Reports: nausea PFSH PFSH Medical History H/O intravenous drug use ?Z87.898 - Personal history of other specified conditions (ICD-10) Surgical History History of umbilical hernia repair ?Z98.890 - Other specified postprocedural states (ICD-10) ?Z87.19 - Personal history of other diseases of the digestive system (ICD-10) History of hand surgery ?Z98.890 - Other specified postprocedural states (ICD-10) Social History Narrative: Patient smokes marijuana daily. He has been doing that for several years. Denies cigarette smoking but drinks alcohol. 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 Smoking Status: Never smoker Second hand tobacco smoke exposure: No How often do you have a drink containing alcohol: 4 or more times a week Alcohol type: beer How many standard drinks containing alcohol do you have on a typical day: 3 or 4 How often do you have six or more drinks on one occasion: Less than monthly AUDIT-C Alcohol total score: 6 Non-prescribed substance use: marijuana (any form) Non-prescribed substance use details: SMOKING. LAST USED LAST NIGHT Caffeine: Yes Exam Narrative: Exam Narrative: Patient is seen in the room 1, he is alert oriented a little bit irritated by me but his family members very nice, pupils are equal round reactive to light there is no scleral icterus redness, nontoxic looking TMs are normal oropharynx is normal neck is supple full range of motion with absence of meningismus his chest is good air entry bilateral with no wheezing crackles noted his heart sounds are normal, no clicks murmurs or gallops abdomen is soft, with no guarding no distension, bowel sounds are normal little quieter than normal no CVA tenderness no masses no hernia, extremities all appear normal with no swelling noted. Skin reveals no petechiae rashes. Const: Vital Signs, click to edit/add: Vital Signs - 24 hr 12/07/24 13:41 12/07/24 14:46 12/07/24 15:00 Temperature 97.8 F Pulse Rate 50 L 46 L Pulse Rate [Pulse Oximeter] 65 Respiratory Rate 20 15 Blood Pressure Blood Pressure [Ri ght Upper Arm] 148/89 H Pulse Oximetry 99 97 97 Oxygen Delivery Me thod Room Air 12/07/24 15:15 12/07/24 15:30 12/07/24 15:52 Temperature Pulse Rate 49 L 48 L 50 L Pulse Rate [Pulse Oximeter] Respiratory Rate 27 H 23 Blood Pressure Blood Pressure [Ri ght Upper Arm] Pulse Oximetry 98 99 99 Oxygen Delivery Me thod 12/07/24 15:54 12/07/24 15:55 12/07/24 16:00 Temperature Pulse Rate 49 L 43 L 49 L Pulse Rate [Pulse Oximeter] Respiratory Rate 11 L 11 L Blood Pressure 164/91 H Blood Pressure [Ri ght Upper Arm] Pulse Oximetry 99 98 98 Oxygen Delivery Me thod 12/07/24 16:15 12/07/24 16:30 12/07/24 16:45 Temperature Pulse Rate 60 47 L 84 Pulse Rate [Pulse Oximeter] Respiratory Rate 18 16 Blood Pressure Blood Pressure [Ri ght Upper Arm] Pulse Oximetry 98 98 99 Oxygen Delivery Me thod 12/07/24 17:00 12/07/24 17:15 12/07/24 17:30 Temperature Pulse Rate 78 67 67 Pulse Rate [Pulse Oximeter] Respiratory Rate 16 16 17 Blood Pressure Blood Pressure [Ri ght Upper Arm] Pulse Oximetry 97 97 100 Oxygen Delivery Me thod 12/07/24 17:45 12/07/24 18:00 12/07/24 18:15 Temperature Pulse Rate 64 41 L 44 L Pulse Rate [Pulse Oximeter] Respiratory Rate 16 Blood Pressure Blood Pressure [Ri ght Upper Arm] Pulse Oximetry 100 100 99 Oxygen Delivery Me thod 12/07/24 18:30 Temperature Pulse Rate 52 L Pulse Rate [Pulse Oximeter] Respiratory Rate Blood Pressure Blood Pressure [Ri ght Upper Arm] Pulse Oximetry 99 Oxygen Delivery Me thod Documenting provider has reviewed patient's vital signs: yes Course Course ED Course: Patient did well, no further vomiting, after 2nd dose of Zyprexa, he did have some mild bradycardia, it appeared to be all sinus, I wonder if this is related to vagal as it appears to be sinus arrhythmia. His troponin is negative, and I think does it has been going on for 3 days this is a true resulted we do not have to repeat this, with a delta. I also think a Zio patch would be helpful, I will send the patient home with this to follow-up. We had a long discussion me the patient and his partner about hyperemesis cannabis syndrome. I do feel that that is likely what is going on here cause on recheck of his abdomen pre discharge she has absolutely no abdominal pain so I do not think this is an obstruction or obstructive nature. They were comfortable with this they will follow-up with primary care return if signs symptoms of worsening which we discussed. I will give him a small supply of Zyprexa ODT which she can use, but the primary thing to cure this would be stopping marijuana. Vital Signs Vital signs: Initial Vital Signs Temperature 97.8 F 12/07/24 13:41 Temperature Source Temporal Artery Scan 12/07/24 13:41 Pulse Rate 65 12/07/24 13:41 Respiratory Rate 20 12/07/24 13:41 Blood Pressure 148/89 H 12/07/24 13:41 Blood Pressure Mean 108 H 12/07/24 13:41 Blood Pressure Position Sitting 12/07/24 13:41 Pulse Oximetry 99 12/07/24 13:41 Oxygen Delivery Method Room Air 12/07/24 13:41 Vital Signs Temperature 97.8 F 12/07/24 13:41 Pulse Rate 65 12/07/24 13:41 Respiratory Rate 20 12/07/24 13:41 Blood Pressure 148/89 H 12/07/24 13:41 Pulse Oximetry 99 12/07/24 13:41 Oxygen Delivery Method Room Air 12/07/24 13:41 Temperature 97.8 F 12/07/24 13:41 Pulse Rate 52 L 12/07/24 18:30 Respiratory Rate 16 12/07/24 17:45 Blood Pressure 164/91 H 12/07/24 15:54 Pulse Oximetry 99 12/07/24 18:30 Oxygen Delivery Method Room Air 12/07/24 13:41 Medications Administered Medications: Discontinued Medications Generic Name Dose Route Start Last Admin Trade Name Mangoq PRN Reason Stop Dose Admin Sodium Chloride 1,000 mls @ 1,000 mls/hr 12/07/24 14:15 12/07/24 15:57 0.9 % Sodium Chloride 1000 Ml IV 12/07/24 15:14 Infused .Q1H [facility] Infusion Diphenhydramine HCl 25 mg/ 100.5 mls @ 301.5 mls/hr 12/07/24 14:14 12/07/24 15:01 Sodium Chloride IVPB 12/07/24 14:15 Infused ONCE ONE Infusion Sodium Chloride 1,000 mls @ 1,000 mls/hr 12/07/24 15:30 12/07/24 16:42 0.9 % Sodium Chloride 1000 Ml IV 12/07/24 16:29 Infused .Q1H [facility] Infusion Olanzapine 5 mg 12/07/24 14:14 12/07/24 14:42 Olanzapine 5 Mg/Ml Inj IVP 12/07/24 14:15 5 mg ONCE ONE Administration Olanzapine 5 mg 12/07/24 16:20 12/07/24 16:27 Olanzapine 5 Mg/Ml Inj IVP 12/07/24 16:21 5 mg ONCE ONE Administration MDM - Nausea/Vomiting/Diarrhea MDM Narrative Medical decision making narrative: Differential diagnosis includes but is not limited to viral gastroenteritis, drug food poisoning, pyloric stenosis, gastritis, pancreatitis, hepatitis, cholecystitis, appendicitis, bowel obstruction, hyperemesis, cyclic vomiting syndrome, bulimia nervosa, migraine headache, motion sickness and medication side effect. These include the life threatening complications of appendicitis, drug food poisoning and bowel obstruction. Medical Records Attestation: I reviewed the patient's medical records. Lab Data Attestation: I reviewed the patient's lab results. Labs: Lab Results 12/07/24 12/07/24 12/07/24 Range/Units 14:14 14:30 15:48 WBC 13.34 H (4.50-11.00) K/uL RBC 4.99 (4.30-5.90) m/uL Hgb 15.4 (13.5-17.5) gm/dL Hct 44.8 (37.0-53.0) % MCV 90 (80-100) fL MCH 31 (26-34) pg MCHC 34 (32-36) gm/dL RDW Coeff of Arlette 11.8 (11.5-15.5) % Plt Count 408 (140-440) K/uL Neut % (Auto) 84.3 H (42.0-72.0) % Lymph % (Auto) 12.7 L (20-44) % Wells % (Auto) 2.8 (0.0-11.0) % Eos % (Auto) 0.0 (0.0-7.0) % Baso % (Auto) 0.1 (0.0-3.0) % Neut # (Auto) 11.20 H (1.7-7.0) K/uL Lymph # (Auto) 1.70 (0.90-2.90) K/uL Wells # (Auto) 0.40 (0.00-0.90) K/UL Eos # (Auto) 0.00 (0.00-0.50) K/uL Baso # (Auto) 0.00 (0.00-0.30) K/uL Abs Immat Gran (auto) 0.00 (0.00-0.30) K/uL Imm/Tot Granulo (auto) 0.1 % Sodium 137 (135-149) mmol/L Potassium 4.0 (3.6-5.1) mmol/L Chloride 100 (96-114) mmol/L Carbon Dioxide 26 (20-32) mmol/L Anion Gap 11 (7-15) mEq/L BUN 18 (5-24) mg/dL Creatinine 1.0 (0.5-1.5) mg/dL Estimated Creat Clear 95.31 Estimated GFR 94 ml/min Glucose 120 H (60-115) mg/dL Calcium 9.5 (8.4-10.6) mg/dL Total Bilirubin 1.2 (0.1-1.5) mg/dL Direct Bilirubin 0.2 (0.0-0.5) mg/dL AST 27 (12-35) U/L ALT 23 (4-50) U/L Alkaline Phosphatase 44 (40-150) U/L Troponin I Cancelled C-Reactive Protein < 0.5 L (0.5-1.0) mg/dL Total Protein 7.8 (6.0-8.3) g/dL Albumin 4.6 (3.3-5.0) g/dL Amylase 48 (18-89) U/L Lipase 36 (23-300) U/L Urine Color Yellow (Yellow) Urine Appearance Clear (Clear) Urine pH 6.5 (5.0-8.5) Ur Specific Zaleski 1.020 (1.000-1.030) Urine Protein Negative (Negative) Urine Glucose (UA) Negative (Negative) Urine Ketones 2+ A (Negative) Urine Blood Trace-intact A (Negative) Urine Nitrite Negative (Negative) Urine Bilirubin Negative (Negative) Urine Urobilinogen 0.2 (0.2-1.0) Ur Leukocyte Esterase Negative (Negative) Urine RBC 0-2 (0-2) Urine WBC 0-2 (0-5) Ur Squamous Epith Cells Few (None-Few) Urine Bacteria None (None) Urine Opiates Screen Negative (Negative) Ur Oxycodone Screen Negative (Negative) Urine Methadone Screen Negative (Negative) Ur Barbiturates Screen Negative (Negative) U Tricyclic Antidepress Negative (Negative) Ur Phencyclidine Scrn Negative (Negative) Ur Amphetamines Screen Negative (Negative) U Methamphetamines Scrn Negative (Negative) U Benzodiazepines Scrn Negative (Negative) Urine Cocaine Screen Negative (Negative) U Marijuana (THC) Screen POSITIVE A (Negative) Ur Drug Screen Comment See Note Lab Acknowledgement POC Troponin I 0.00 L (0.01-0.04) ng/ml 12/07/24 Range/Units 18:17 WBC (4.50-11.00) K/uL RBC (4.30-5.90) m/uL Hgb (13.5-17.5) gm/dL Hct (37.0-53.0) % MCV (80-100) fL MCH (26-34) pg MCHC (32-36) gm/dL RDW Coeff of Arlette (11.5-15.5) % Plt Count (140-440) K/uL Neut % (Auto) (42.0-72.0) % Lymph % (Auto) (20-44) % Wells % (Auto) (0.0-11.0) % Eos % (Auto) (0.0-7.0) % Baso % (Auto) (0.0-3.0) % Neut # (Auto) (1.7-7.0) K/uL Lymph # (Auto) (0.90-2.90) K/uL Wells # (Auto) (0.00-0.90) K/UL Eos # (Auto) (0.00-0.50) K/uL Baso # (Auto) (0.00-0.30) K/uL Abs Immat Gran (auto) (0.00-0.30) K/uL Imm/Tot Granulo (auto) % Sodium (135-149) mmol/L Potassium (3.6-5.1) mmol/L Chloride (96-114) mmol/L Carbon Dioxide (20-32) mmol/L Anion Gap (7-15) mEq/L BUN (5-24) mg/dL Creatinine (0.5-1.5) mg/dL Estimated Creat Clear Estimated GFR ml/min Glucose (60-115) mg/dL Calcium (8.4-10.6) mg/dL Total Bilirubin (0.1-1.5) mg/dL Direct Bilirubin (0.0-0.5) mg/dL AST (12-35) U/L ALT (4-50) U/L Alkaline Phosphatase (40-150) U/L Troponin I C-Reactive Protein (0.5-1.0) mg/dL Total Protein (6.0-8.3) g/dL Albumin (3.3-5.0) g/dL Amylase (18-89) U/L Lipase (23-300) U/L Urine Color (Yellow) Urine Appearance (Clear) Urine pH (5.0-8.5) Ur Specific Zaleski (1.000-1.030) Urine Protein (Negative) Urine Glucose (UA) (Negative) Urine Ketones (Negative) Urine Blood (Negative) Urine Nitrite (Negative) Urine Bilirubin (Negative) Urine Urobilinogen (0.2-1.0) Ur Leukocyte Esterase (Negative) Urine RBC (0-2) Urine WBC (0-5) Ur Squamous Epith Cells (None-Few) Urine Bacteria (None) Urine Opiates Screen (Negative) Ur Oxycodone Screen (Negative) Urine Methadone Screen (Negative) Ur Barbiturates Screen (Negative) U Tricyclic Antidepress (Negative) Ur Phencyclidine Scrn (Negative) Ur Amphetamines Screen (Negative) U Methamphetamines Scrn (Negative) U Benzodiazepines Scrn (Negative) Urine Cocaine Screen (Negative) U Marijuana (THC) Screen (Negative) Ur Drug Screen Comment Lab Acknowledgement Test Added POC Troponin I (0.01-0.04) ng/ml Imaging Data Abdominal x-ray: Attestation: I have reviewed the pertinent imaging results. My impression: I do not see anything acute. Radiologist's impression: Patient: Nikhil Christy MR#: [id number] : 1980 Acct:[id number] Loc: ED Service Date: 12/07/[address]: Ordering Physician: James Michel M.D. Date of Service: 12/07/24 Procedure(s): XR chest 2V Accession Number(s): [id number] cc: José Brown M.D.; James Michel M.D.~ For Patients: As a result of the Cures Act, medical imaging exams and procedure reports are released immediately into your electronic medical record. You may view this report before your referring provider. If you have questions, please contact your health care provider. INDICATION: Shortness of breath. TECHNIQUE: Chest 2 views. COMPARISON: None. FINDINGS: Unremarkable cardiomediastinal contours. No lung consolidation. No sign of pleural effusion. No pneumothorax. No acute osseous or soft tissue findings. IMPRESSION: No acute findings. Dictated by Jasvir Lowery MD @ 12/07/2024 4:10:06 [place] [address] Diagnostic Imaging Report Patient: Nikhil Christy MR#: [id number] : 1980 Acct:[id number] Loc: ED Service Date: 12/07/[address]: Ordering Physician: James Michel M.D. Date of Service: 12/07/24 Procedure(s): XR abdomen min 2V Accession Number(s): [id number] cc: José Brown M.D.; James Michel M.D.~ For Patients: As a result of the Cures Act, medical imaging exams and procedure reports are released immediately into your electronic medical record. You may view this report before your referring provider. If you have questions, please contact your health care provider. Indication: Abdominal pain. Technique: Abdomen 2 view. Comparison: None. Findings/Impression: Nonspecific bowel gas pattern. There are prominent air-filled loops of bowel noted within the mid abdomen. Prominent gas is seen within the transverse colon. Relative paucity of bowel gas is noted within the pelvis. Partial gaseous distention of the stomach is seen. No gross free air. Recommend close monitoring of the patient`s physical examination. Consider CT of the abdomen and pelvis for better evaluation of the bowel. Dictated by Beto Lancaster MD @ 12/07/2024 4:09:01 PM (Electronically Signed)(Electronically Signed) ECG Data Attestation: I personally reviewed and interpreted this ECG as follows: ECG interpretation date: 12/07/24 Prior ECG tracings: available for review Interpretation: EKG shows normal sinus rhythm within sinus bradycardia with sinus arrhythmia at 43, QT is 454 and QTC is 383. Recheck of his EKG shows sinus rhythm with a ventricular rate Discharge Plan Discharge Clinical Impression: Cannabinoid hyperemesis syndrome, Bradycardia, Dehydration, Vomiting, Abdominal pain Patient Disposition: Home w/ Parent or Adult Condition: Improved Instructions: Acute Nausea and Vomiting (DC), Cannabis Use Disorder (ED), Acute Abdominal Pain (ED) Additional Instructions: Home rest lots of fluids, increasing fevers chills nausea vomiting and not working with the Zyprexa that I gave you, then I would think follow-up will be needed, again I do think that the use of the cannabis is causing this. I know that is hard to understand. But I would suggest some online research 2. I think it would be reasonable to start Prilosec, 20 mg a day and I by mine at [facility], follow-up with primary care to discuss this to is suggested. Activity Level: Light activity Prescriptions: New olanzapine 5 mg tablet,disintegrating 5 mg PO BID PRNQty: 14 0RF Follow Up/Referrals: José Brown MD [Primary Care Provider, Family Practice] Stand Alone Forms: [employer] Info Instructions
[2024-12-07 14:53] LABS: Albumin* 4.6 g/dL (3.3-5.0); Chloride* 100 mmol/L (96-114); Sodium* 137 mmol/L (135-149)
[2024-12-07 14:54] LABS: Immature Granulocytes Abs Auto 0.00 K/uL (0.00-0.30); Lymphocytes Absolute Auto 1.70 K/uL (0.90-2.90); Potassium* 4.0 mmol/L (3.6-5.1); Slide Review Reflex No
[2024-12-07 14:57] LABS: Troponin, Point-of-Care* 0.00 ng/ml (0.01-0.04)
[2024-12-07 14:57] LABS: Alanine Aminotransferase* 23 U/L (4-50); Alkaline Phosphatase* 44 U/L (40-150); Anion Gap 11 mEq/L (7-15); Aspartate Amino Transferase* 27 U/L (12-35); Bilirubin Direct* 0.2 mg/dL (0.0-0.5); Bilirubin Total* 1.2 mg/dL (0.1-1.5); Blood Urea Nitrogen* 18 mg/dL (5-24); Calcium* 9.5 mg/dL (8.4-10.6); Carbon Dioxide* 26 mmol/L (20-32); Creatinine* 1.0 mg/dL (0.5-1.5); Est. Creatinine Clearance* 95.31; Estimated Glomerular Filt Rate 94 ml/min; Glucose* 120 mg/dL (60-115); Total Protein* 7.8 g/dL (6.0-8.3)
[2024-12-07 15:56] LABS: Appearance Urine Clear (Clear)
[2024-12-07 16:07] LABS: Cannabinoid Screen Urine POSITIVE (Negative); Methamphetamines Screen Urine Negative (Negative); Tricyclic Antidepressant Urine Negative (Negative)
== END 2024-12-07 18:45 | disposition home or self-care (01) ==
PROVIDERS: Emergency Provider Family Medicine; PCP Family Medicine
DX: F12.188 Cannabis abuse with other cannabis-induced disorder (principal); R00.1 Bradycardia, unspecified; E86.0 Dehydration
CPT/HCPCS: 36415; 71046; 74019; 80048; 80076; 80306; 81001; 82150; 83690; 84484; 85025; 86140; 93005; 93246; 94761; 96365; 99284; J1200; J7030